=== PATIENT | female | born 1985 | race Caucasian/White ===

== ENCOUNTER 2017-12-07 21:19 | Emergency (ER) | payer OTHER ==
[~2017-12-07] VITALS: Ht 157.5 cm; Wt 63.0 kg
[2017-12-07 21:29] VITALS: BP 127/70; PULSE 89; RESP 22; TEMP 98.6; O2SAT 100
[2017-12-07] MEDS ORDERED: ALPR.25 PO (21:32)
[2017-12-07] MEDS ORDERED: CRYS28TA PO (21:32)
[2017-12-07] MEDS ORDERED: VIST25CA PO (23:36)
--- NOTE | 2017-12-07 23:39 | PD ---
HPI Chief Complaint: Anxiety Time Seen by Provider: 23:29 Travel History International Travel<30 days: No Contact w/Intl Traveler<30days: No Traveled to known affect area: No History of Present Illness HPI 31-year-old female states while she was driving here from [place] she had a panic attack. She left her Xanax at home so she did not know what to do. She denies any thoughts of wanting to hurt herself or anyone else. She denies any other concurrent complaints. She states she plans to call her doctor tomorrow and discuss with their nurse. She states the panic attack has resolved. She denies possibility of . COUNTS INCLUDE 234 BEDS AT THE [facility] Past Medical History Anxiety: Yes ?: Not LMP: 11/29/17 Past Surgical History Surgical History: No Previous Surgery Social History Tobacco Use: No Allergies-Medications (Allergen,Severity, Reaction): Coded Allergies: No Known Allergies (Unverified , 12/07/17) Reported Meds & Prescriptions Reported Meds & Active Scripts Active Reported Cryselle-28 (Norgestrel-Ethinyl Estradiol) 0.3-30 Mg-Mcg Tab 1 Tab PO DAILY Xanax (Alprazolam) 0.25 Mg Tab 0.25 Mg PO Q8H PRN Review of Systems Except as stated in HPI: all other systems reviewed are Neg Physical Exam Narrative GENERAL: 31-year-old female in no apparent distress, resting on my arrival SKIN: Focused skin assessment warm/dry. HEAD: Atraumatic. Normocephalic. EYES: Pupils equal and round. No scleral icterus. No injection or drainage. ENT: No nasal bleeding or discharge. Mucous membranes pink and moist. NECK: Trachea midline. No JVD. CARDIOVASCULAR: Regular rate and rhythm. RESPIRATORY: No accessory muscle use. Clear to auscultation. Breath sounds equal bilaterally. MUSCULOSKELETAL: No obvious deformities. No clubbing. No cyanosis. No edema. NEUROLOGICAL: Awake and alert. No obvious cranial nerve deficits. Motor grossly within normal limits. Normal speech. PSYCHIATRIC: Appropriate mood and affect; insight and judgment normal. Data Data Last Documented VS Vital Signs Date Time Temp Pulse Resp B/P (MAP) Pulse Ox O2 Delivery O2 Flow Rate FiO2 12/07/17 21:29 98.6 89 22 127/70 (89) 100 Room Air MDM Medical Decision Making Medical Screen Exam Complete: Yes Emergency Medical Condition: Yes Medical Record Reviewed: Yes Differential Diagnosis Anxiety, panic attack, medication refill Narrative Course Lengthy discussion with patient and she agrees to limited prescription of Vistaril if she gets another panic attack episode to try. She was given return instructions. She has someone with her and feels comfortable with discharge. Diagnosis Primary Impression: Panic attack Patient Instructions: General Instructions Additional Instructions: return as needed, follow with your doctor sunday Med/Other Pt SpecificInfo: Prescription(s) given Scripts Hydroxyzine Pamoate (Vistaril) 25 Mg Cap 25 MG PO TID Y for ANXIETY, #12 CAP 0 Refills Prov: Annalee Kovacs MD 12/07/17 Disposition: 01 DISCHARGE HOME Condition: Stable Annalee Kovacs MD Dec 07, 2017 23:39
== END 2017-12-07 23:47 | disposition home or self-care (01) ==
LOC: NEPC 21:19
DX: F41.0 Panic disorder [episodic paroxysmal anxiety] (principal)
CPT/HCPCS: 99281